=== PATIENT | female | born 1965 | race Caucasian/White ===

== ENCOUNTER 2020-06-26 13:48 | Outpatient (REF) | payer OTHER, SELFPAY ==
--- NOTE | 2020-06-26 13:53 | MM_ITS ---
EXAMINATION: BONE DENSITOMETRY CLINICAL INDICATION: Osteopenia. COMPARISON: Previous BD dated 02/21/2016 and baseline BD dated 01/28/2012. TECHNIQUE: Using a [employer] DXA System (software version: 13.1) manufactured by [employer], dual-energy x-ray absorptiometry was performed of the lumbar spine and left hip. The images are of good technical quality. Summary results are attached. FINDINGS: AP SPINE L1-L4: Current: BMD 1.100 g/cm2, Z-score 0.3, T-score -0.7, normal, 10.9% increase from previous, 5.3% decrease from baseline (<5% change is not significant). Prior: BMD 0.992 g/cm2. Baseline: BMD 1.162 g/cm2. LEFT FEMUR, NECK: Current: BMD 0.913 g/cm2, Z-score 0.2, T-score -0.9, normal. Prior: BMD 0.861 g/cm2. Baseline: BMD 0.967 g/cm2. LEFT FEMUR, TOTAL: Current: BMD 0.946 g/cm2, Z-score 0.3, T-score -0.5, normal, 4.8% increase from previous, 3.8% decrease from baseline (<5% change is not significant). Prior: BMD 0.903 g/cm2. Baseline: BMD 0.983 g/cm2. IDENTIFIED RISK FACTORS: Secondary osteoporosis, family history (parental hip fracture), menopause. HISTORY OF FRACTURE: None listed. MEDICATIONS: Calcium supplements or multivitamin, vitamin D, Prolia. MM/XR DEXA appendicular skeleton IMPRESSION: 1. DIAGNOSIS: Normal bone density based on the lowest T-score value of -0.9 in the femoral neck applying World Health Organization criteria. 2. 10-YEAR FRACTURE RISK PREDICTION, FRAX: Major osteoporotic fracture (clinical spine, forearm, hip or shoulder) 11.5%. Hip fracture 0.3%. 3. Treatment Recommendations: NOF guidelines recommend consideration for treatment in postmenopausal women and men age 50 and older presenting with the following: -A hip or vertebral (clinical or morphometric) fracture. -T-score less than or equal to -2.5 at the femoral neck or spine after appropriate evaluation to exclude secondary causes. -Low bone mass at the hip or spine and a 10-year fracture probability by FRAX of greater than or equal to 3% for hip fracture or greater than or equal to 20% for major osteoporotic fracture based on the [place] adapted WHO algorithm. 4. Other Recommendations: All treatment decisions require clinical judgment and consideration of individual patient factors, including patient preferences, comorbidities, previous drug use, risk factors not captured in the FRAX model (e.g. frailty, falls, vitamin D deficiency, increased bone turnover, interval significant decline in bone density) and possible under or overestimation of fracture risk by FRAX. FUTURE SCAN RECOMMENDATION: People with diagnosed cases of osteoporosis or at high risk for fracture should have regular bone mineral density tests. For patients eligible for Medicare, routine testing is allowed once every 2 years. The testing frequency can be increased to one year for patients who have rapidly progressing disease, those who are receiving or discontinuing medical therapy to restore bone mass, or have additional risk factors.
== END 2020-06-26 13:49 | disposition home or self-care (01) ==
LOC: HO.MAMMO 13:48
PROVIDERS: Visit Provider Internal Medicine Medical Oncology
DX: M85.89 Other specified disorders of bone density and structure, multiple sites (principal)
CPT/HCPCS: 77081

== ENCOUNTER → 2024-04-04 14:26 | Outpatient (RCR) | payer OTHER, SELFPAY ==
--- NOTE | 2020-06-13 15:11 | P.PNHO_ITS ---
[facility] Telehealth - Telehealth Patient Identification confirmed using: Name, : Yes Patient verbally consented to billing insurance company: Yes Patient informed of any privacy concerns related to visit: Yes Medical Summary - Medical Summary Chief complaint: F/U for ALH L Breast. 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 CURRENT THERAPY: Tamoxifen, started July 28, 2012. Completed 5 years September. Interval History Interval history: 52 year-old lady, with whom a tele visit, was held. Overall she is stable. She denies any easy fatigability. No fever chills no night sweats. She does not have any new medical problems, nor any changes in her medications. She denies any breast related complaints. No chest pain nor shortness of breath. She denies abdominal pain nausea vomiting heartburn indigestion. Her bowels are moving without any gross blood in it. She enjoys a good appetite. She has lost a lot of weight. She and her have been exercising. They joined weight watchers. She is in good spirits. Rest of the review of systems is unremarkable. When she got the Zometa few years ago, she had a really bad reaction to it. She had chills and flu like illness. She was achy in miserable. Lasted a few days before she got better. Now she is scared to receive it again. She will be due for the Prolia in July however it has a large co-pay. She tells me that she has a new primary care Dr. in [place], Dr. Lizabeth Friedman. Review of Systems - Constitutional Reports system reviewed and no additional complaints, except as documented, Denies fatigue - Eyes Reports system reviewed and no additional complaints, except as documented - ENT Reports system reviewed and no additional complaints, except as documented - Cardiovascular Reports system reviewed and no additional complaints, except as documented - Respiratory Reports no additional respiratory complaints - Gastrointestinal Reports system reviewed and no additional complaints, except as documented - Genitourinary Reports no additional female genitourinary complaints - Musculoskeletal Reports deformity - Integumentary/Breasts Skin/Breast: Reports no additional skin complaints - Neurologic Reports system reviewed and no additional complaints, except as documented - Psychiatric Reports system reviewed and no additional complaints, except as documented - Hematologic/Lymphatic Reports system reviewed and no additional complaints, except as documented - Allergic/Immunologic Reports system reviewed and no additional complaints, except as documented Home Medications and Allergies Home Medications Medication Instructions Recorded Confirmed Type Vitamin D3 2,800 units PO 06/13/20 History calcium 600 mg PO DAILY 06/13/20 06/13/20 History levothyroxine [Synthroid] 1 tab PO DAILY 06/13/20 06/13/20 History multivitamin 1 tab PO DAILY 06/13/20 06/13/20 History Allergies Allergy/AdvReac Type Severity Reaction Status Date / Time latex [LATEX] Allergy Unknown RASH Unverified 04/25/20 16:50 penicillin G [PENICILLIN G] Allergy Unknown RASH Unverified 04/25/20 16:50 penicillin V Allergy Unknown rash Verified 01/25/17 00:00 Sulfa (Sulfonamide Allergy Unknown rash Verified 01/25/17 00:00 Antibiotics) sulfamethoxazole Allergy Unknown RASH Unverified 04/25/20 16:50 [From BACTRIM] trimethoprim [From BACTRIM] Allergy Unknown RASH Unverified 04/25/20 16:50 Bactrim Allergy Unknown rash Uncoded 08/07/11 00:00 Penicillin G Potassium Allergy Unknown rash Uncoded 08/07/11 00:00 Progress Note: A/P (1) Atypical lobular hyperplasia (ALH) of left breast Status: Acute Assessment and plan: 54 year-old lady with history of Atypical Lobular Hyperplasia of the Left Breast. The patient had been on Tamoxifen, for prophylaxis. She completed 5 years of therapy September,. She tolerated that extremely well. She has osteopenia. She was initially on Denosumab. She was then switched to Zometa. However she had a bad reaction to it. She does not wish to take it now. I switched her back to Denosumab. She has been tolerating it very well. However it tends to be expensive for her. PLAN: I will repeat a bone mineral density at this point. Will then decide about the choice of agent. Will check with insurance to see which one is the preferred agent, among raloxifene, Fosamax and Boniva. Appears as if Boniva I would be the better choice. I will switch to that. Oral dose is 150 mg, monthly. I checked a vitamin D level, in October, it was 42. She will continue to have annual Pap smears and eye examination. She will return in 12 months for a followup visit. Thanks, cc: Lizabeth Friedman MD. Dr. STEPHEN BARRON. - Time Spent With Patient Total time spent is greater than 50% in coordination of care (as documented) at patient's floor/unit and/or counseling patient: 25 - 35 minutes
--- NOTE | 2020-06-14 10:51 | MHC.HEMONCSW ---
PER DR IVAN REQUEST, I CALLED [facility] (AUTOMATED CODE [id number]) AND ANA NEEDS NO PA. WILL NOT KNOW HER COPAY UNTIL HER PHARMACY RUNS A CLAIM. PHONED AND LEFT MESSAGE A MESSAGE ABOUT THIS.
== END | disposition home or self-care (01) ==
LOC: HO.ONC 06-13 16:32
PROVIDERS: PCP Family Medicine; Visit Provider Internal Medicine Medical Oncology
DX: M85.80 Other specified disorders of bone density and structure, unspecified site (principal); Z87.898 Personal history of other specified conditions